=== PATIENT | female | born 1980 | race Two or more races ===

== ENCOUNTER 2024-12-26 21:29 | Emergency (ER) | payer BC, SELFPAY ==
[2024-12-26 21:32] VITALS: BP 174/100
--- NOTE | 2024-12-26 22:05 | EDRN ---
house where the son lives and she can not do that. They were told she needs a medical screening to be placed in a [facility] facility.
[2024-12-26 22:07] VITALS: BMI 38.4
[2024-12-26 22:11] VITALS: BP 141/89
--- NOTE | 2024-12-26 22:42 | ED.GENMED ---
History of Present Illness
General
Chief Complaint: Crisis Evaluation
Source: patient and family
Time Seen by Provider: 12/26/24 21:55
History of Present Illness
History of Present Illness:
Note:
CHIEF COMPLAINT(S)
Mental stress and anxiety.
HISTORY OF PRESENT ILLNESS
The patient is a 44-year-old female who presents with complaints of persistent mental stress and anxiety since 2020. She reports feeling tired and stressed, with occasional hallucinations. Her son has disclosed that there is a protection order
against her, yet she has been seen on the front porch and around the house. She denies symptoms such as chest pain, abdominal pain, vomiting, or fever. The primary motivation for her visit is to seek assistance with her mental stress.
ADDITIONAL HISTORY OBTAINED FROM SOURCES OTHER THAN THE PATIENT
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
CHRONIC MEDICAL CONDITIONS SIGNIFICANTLY AFFECTING CARE
The patient has a history of schizophrenia diagnosed several years prior but is not currently on medication for the condition.
SOCIAL DETERMINANTS AFFECTING HEALTH
The patient reports ongoing mental health stress.
REVIEW OF SYSTEMS
- Psychological: Mental stress and anxiety.
- General: Fatigue.
- Neurological: Occasional hallucinations.
PROBLEM LIST
- Acute: Mental stress and anxiety.
- Chronic: Schizophrenia.
DIFFERENTIAL DIAGNOSIS
The Differential Diagnosis includes, in no particular order and is not limited to:
1. Generalized Anxiety Disorder
2. Major Depressive Disorder
3. Schizophrenia
4. Bipolar Disorder
5. Persistent Depressive Disorder (Dysthymia)
6. Panic Disorder
7. Adjustment Disorder
8. Post-Traumatic Stress Disorder
9. Substance-Induced Anxiety Disorder
10. Psychotic Disorder
CARE-UPDATE
12/26/24 - 22:23
Consultation requested with the crisis team; the patient has a longstanding history of schizophrenia.
Past History
Past History
ED Past Medical History: Other (Possible PTSD, severe depression)
Phy Exam
Physical Exam
Physical Exam:
.
Course
Orders/Labs/Results
Orders:
Orders
12/26/24 22:18
Urine Drug Abuse Screen Urgent
Date Specimen was Collected: 12/27/24
Time Specimen was Collected: 00:31
12/26/24 22:20
Crisis Consult Routine
Reason for Consult: psychosis
12/26/24 22:49
Alcohol Urgent
Complete Blood Count/With Diff Urgent
Comprehensive Metabolic Panel Urgent
HCG, Serum Qualitative Screen Urgent
12/26/24 23:53
Add On- LAB Urgent
Tests Added?: hcg qual
Abnormal Lab Results
12/26/24
22:49
Absolute Lymphs (auto) 3.7 H 10^3/uL
(1.2-3.4)
Absolute Monos (auto) 0.8 H 10^3/uL
(0.1-0.6)
Chloride 111 H mmol/L
(98-107)
Glucose 129 H mg/dl
(70-99)
12/26/24 22:49
12/26/24 22:49
Vital Signs
Initial and Last Documented VS:
Initial Vital Signs
Temp Pulse Resp BP Pulse Ox
97.9 F 91 18 174/100 99
12/26/24 21:32 12/26/24 21:32 12/26/24 21:32 12/26/24 21:32 12/26/24 21:32
Last Documented Vital Signs
Temp Pulse Resp BP Pulse Ox
97.9 F 86 16 141/89 100
12/26/24 21:32 12/26/24 22:11 12/26/24 22:11 12/26/24 22:11 12/26/24 22:11
*Pulse Oximetry
Patient hypoxic: no (98%)
*Critical Care Note
Total Time (30-74mins, 75-104mins- exclusive of procedures): Not Applicable
Update Note
Update Note:
Disposition: Transfer to psychiatric unit
DIAGNOSIS
- Schizophrenia (F20.9)
SUMMARY OF ENCOUNTER
The patient is a 44-year-old female with a history of schizophrenia who presented to the emergency department with progressive mental stress and hallucinations. Initial evaluation included a review of labs, which showed slight hyperglycemia but were
otherwise grossly normal. Vital signs were noted to be within normal limits.
CONSIDERATION FOR ADMISSION
There was consideration for psychiatric placement, as the clerical and office support workers discussed with the patient the willingness to seek inpatient care.
ASSESSMENT
The patient�s symptoms of mental stress and hallucinations are consistent with schizophrenia, a previously diagnosed condition. The situation was assessed as needing further psychiatric evaluation and potential inpatient care.
MANAGEMENT OF THE PATIENTS CARE WAS DISCUSSED WITH
The clerical and office support workers who will attempt to arrange for psychiatric placement.
INDEPENDENT INTERPRETATION OF TESTS
My independent interpretation of the lab results indicates slight hyperglycemia, but chemistries and CBC were otherwise normal.
MEDICAL DECISION MAKING
Number and Complexity of Problems Addressed: The patients presentation of progressive mental stress and hallucinations was assessed in the context of her known schizophrenia. The possibility of admission to a psychiatric unit was contemplated as a
significant intervention due to the complexity of her psychiatric condition.
Data: The decision-making process included reviewing lab results which showed slight hyperglycemia but were otherwise normal, supporting the decision against acute medical intervention and favoring psychiatric assessment.
Risk: The encounter involved assessing the potential need for inpatient psychiatric care due to her psychiatric symptoms and social determinants impacting her health plan. ?
ED Attending Note
-
Portions of this chart may have been created with voice recognition software.� Occasional wrong word or��sound alike� substitutions may have occurred due to the inherent limitations of voice recognition software.
Discharge Plan
Departure
Patient Disposition: Psych Facility
Date of Disposition: 12/26/24
Time of Disposition: 23:05
Discharge Problem:
Psychosis
Prescriptions:
No Action
No Current Medications
0
Referrals:
UNKNOWN - PT DOES,NOT KNOW [Family Provider]
Interventions
Interventions:
*Risk Screen - Suicide Last Done: 12/26/24 21:32
*General Assessment Last Done: 12/26/24 21:59
*Neglect/Abuse Screening Last Done: 12/26/24 21:32
*ED- Fall Risk Assessment Last Done: 12/26/24 21:59
*ED COVID-19 Vaccine History Last Done: 12/26/24 21:59
ED-Psychological Assessment Last Done: 12/26/24 21:59
Discharge Date and Time
Print Language: BELARUSIAN
[2024-12-26 22:55] LABS: % Basophils 0.6 % (0-2); % Immature Granulocytes 0.3 % (0-0.5); % Lymphocytes 37.2 % (20.5-51.1); % Monocytes 7.6 % (1.7-9.3); % Neutrophils 53.3 % (42.2-75.2); Absolute Basophils 0.1 10^3/uL (0-0.2); Absolute Eosinophils 0.1 10^3/uL (0-0.7); Absolute Lymphocytes 3.7 10^3/uL (1.2-3.4); Absolute Monocytes 0.8 10^3/uL (0.1-0.6); Absolute Neutrophils 5.3 10^3/uL (1.4-6.5); Hematocrit 40.1 % (37.0-47.0); Hemoglobin 13.6 g/dL (12.0-16.0); Mean Corp Hgb Conc. 33.9 g/dL (33.0-37.0); Mean Corpuscular Hgb 30.2 pg (27.0-31.0); Mean Corpuscular Volume 88.9 fL (81.0-99.0); Mean Platelet Volume 8.8 fL (7.4-10.4); Nucleated Red Blood Cells % 0 %; Platelet Count 294 10^3/uL (130-400); Red Blood Cell Count 4.51 10^6/uL (4.20-5.40); White Blood Cell Count 9.9 10^3/uL (4.8-10.8)
[2024-12-26 23:13] LABS: ALT (SGPT) 24 U/L (0-35); AST (SGOT) 28 U/L (14-36); Albumin 4.5 g/dl (3.5-5.0); Alcohol None Detected; Alkaline Phosphatase 83 U/L (38-126); Blood Urea Nitrogen 10 mg/dl (7-17); Calcium 9.4 mg/dl (8.4-10.2); Carbon Dioxide 24 mmol/L (22-30); Chloride 111 mmol/L (98-107); Estimated Creatinine Clearance 104 ml/min; Glucose 129 mg/dl (70-99); Potassium 4.2 mmol/L (3.5-5.1); Sodium 144 mmol/L (135-145); Total Bilirubin 1.2 mg/dl (0.2-1.3); Total Protein 8.1 g/dl (6.3-8.2); eGFR > 60.00
[2024-12-27 00:29] LABS: HCG, Serum Qualitative Screen Negative
[2024-12-27 00:55] LABS: Amphetamines Negative (Negative); Barbiturates Negative (Negative); Benzodiazepines Negative (Negative); Buprenorphine Negative (Negative); Cocaine Negative (Negative); Marijuana Negative (Negative); Methadone Negative (Negative); Methamphetamines Negative (Negative); Opiates Negative (Negative); Phencyclidine Negative (Negative); Tricyclic Antidepressants Negative (Negative)
== END 2024-12-27 12:30 ==
LOC: EMR 21:29
PROVIDERS: EMERGENCY PHYSICIAN Emergency Medicine
DX: F20.9 Schizophrenia, unspecified (principal); F41.9 Anxiety disorder, unspecified
CPT/HCPCS: 99285; 80053; 80306; 82077; 84703; 85025